=== PATIENT | female | born 2000 | race Two or more races ===

== ENCOUNTER 2020-04-16 16:40 | Emergency (ER) | payer SELFPAY ==
[~2020-04-16] VITALS: Ht 160 cm; Wt 68.0 kg
[2020-04-16] MEDS ORDERED: ONDANSETRON ODT 4 MG TAB PO ONE (18:15)
[2020-04-16] MEDS ORDERED: ACETAMINOPHEN/CODEINE#3 (300/30mg) TAB PO ONE (18:15)
[2020-04-16 21:01] VITALS: BP 127/72
== END 2020-04-16 21:10 | disposition home or self-care (01) ==
LOC: ER 16:40
DX: S16.1XXA Strain of muscle, fascia and tendon at neck level, initial encounter (principal); S80.811A Abrasion, right lower leg, initial encounter; S50.311A Abrasion of right elbow, initial encounter; V86.59XA Driver of other special all-terrain or other off-road motor vehicle injured in nontraffic accident, initial encounter; Y93.89 Activity, other specified; Y92.488 Other paved roadways as the place of occurrence of the external cause; Y99.8 Other external cause status
CPT/HCPCS: 70450; 72125; 99285; Q0162